=== PATIENT | male | born 1940 | race Caucasian/White ===

== ENCOUNTER 2016-06-16 05:45 | Day surgery (SDC) | payer OTHER ==
--- NOTE | ~2016-06-16 | EGD ---
EGD REPORT [facility] [address] [address] NAME: TRAVIS BLANCHARD : 36 STATUS : [facility] [place] PAT#: [id number] AGE: 75 ADM/REG DATE : 06/16/16 MR#: [id number] REPORT SERV DATE: 06/16/16 DICTATED BY: PARVIN HAGEN DATE: 06/16/16 REPORT STATUS : Draft [facility] DATE: 06/16/16 Endoscopy Center Patient Name: Travis Blanchard Date of : 1940 Attending MD: PARVIN HAGEN MD Procedure Date No Time: 06/16/2016 Procedure: Upper GI endoscopy Indications: Dysphagia, Abnormal UGI series Referring MD: EYAL AGUAYO Medicines: Monitored Anesthesia Care Complications: No immediate complications. Procedure: Pre-Anesthesia Assessment: - ASA Grade Assessment: III - A patient with severe systemic disease. After obtaining informed consent, the endoscope was passed under direct vision. Throughout the procedure, the patient's blood pressure, pulse, and oxygen saturations were monitored continuously. The GIF H190 [id number] was introduced through the mouth, and advanced to the second part of duodenum. The upper GI endoscopy was accomplished without difficulty. The patient tolerated the procedure well. Findings: LA Grade B (one or more mucosal breaks greater than 5 mm, not extending between the tops of two mucosal folds) esophagitis with no bleeding was found in the lower third of the esophagus. Biopsies were taken with a cold forceps for histology. A moderate Schatzki ring (acquired) was found in the lower third of the esophagus. A guidewire was placed and the scope was withdrawn. Dilation was performed with a Savary dilator with mild resistance at 36 Fr. Estimated blood loss was minimal. A small hiatus hernia was present. Patchy mildly erythematous mucosa without bleeding was found in the gastric antrum. Biopsies were taken with a cold forceps for histology. The cardia and gastric fundus were normal on retroflexion. Localized moderately erythematous mucosa without active bleeding and with no stigmata of bleeding was found in the duodenal bulb. Biopsies were taken with a cold forceps for histology. The cardia and gastric fundus were normal on retroflexion. Impression: - LA Grade B reflux esophagitis. Biopsied. - Moderate Schatzki ring. Dilated. - Hiatus hernia. - Erythematous mucosa in the antrum. Biopsied. EGD REPORT [address] [place]. [address] NAME: TRAVIS BLANCHARD : 36 STATUS : [facility] [place] PAT#: [id number] AGE: 75 ADM/REG DATE : 06/16/16 MR#: [id number] REPORT SERV DATE: 06/16/16 DICTATED BY: PARVIN HAGEN DATE: 06/16/16 REPORT STATUS : Draft TRANSCRIBED BY: [employer] DATE: 06/16/16 - Erythematous duodenopathy. Biopsied. Recommendation: - Patient has a contact number available for emergencies. The signs and symptoms of potential delayed complications were discussed with the patient. Return to normal activities tomorrow. Written discharge instructions were provided to the patient. - Continue present medications. - Liquids for 24 hours then soft diet until repeat egd with dilation. - Use Prilosec (omeprazole) 20 mg PO daily. - Repeat the upper endoscopy in 1 week for retreatment. Procedure Code(s): --- Professional --- 04702, Esophagogastroduodenoscopy, flexible, transoral; with insertion of guide wire followed by passage of dilator(s) through esophagus over guide wire 85166, Esophagogastroduodenoscopy, flexible, transoral; with biopsy, single or multiple Diagnosis Code(s): --- Professional --- K21.0, Gastro-esophageal reflux disease with esophagitis K22.2, Esophageal obstruction K44.9, Diaphragmatic hernia without obstruction or gangrene K31.9, Disease of stomach and duodenum, unspecified K31.89, Other diseases of stomach and duodenum R13.10, Dysphagia, unspecified R93.3, Abnormal findings on diagnostic imaging of other parts of digestive tract CPT copyright 2013 [employer]. All rights reserved. The codes documented in this report are preliminary and upon accounting software specialist review may be revised to meet current compliance requirements. PARVIN HAGEN MD 06/16/2016 8:14 AM This report has been signed electronically. Number of Addenda: 0 Note Initiated On: 06/16/2016 7:54 AM Scope Withdrawal Time 0 hours 0 minutes 0 seconds [address] [id number]
[~2016-06-16 05:45] MED LIST: CYANO1000T PO
[2016-06-18] MEDS ORDERED: PRILO PO (19:01)
== END 2016-06-16 23:59 | disposition home health service (06) ==
LOC: DMU 05:45
PROVIDERS: Internal Medicine Gastroenterology
PROC: 0D738ZZ Dilation of Lower Esophagus, Via Natural or Artificial Opening Endoscopic (ICD-10-PCS; 2016-06-16)
PROC: 0DB98ZX Excision of Duodenum, Via Natural or Artificial Opening Endoscopic, Diagnostic (ICD-10-PCS; 2016-06-16)
PROC: 0DB38ZX Excision of Lower Esophagus, Via Natural or Artificial Opening Endoscopic, Diagnostic (ICD-10-PCS; principal; 2016-06-16 07:30)
PROC: 0DB68ZX Excision of Stomach, Via Natural or Artificial Opening Endoscopic, Diagnostic (ICD-10-PCS; 2016-06-16 07:30)
DX: K29.80 Duodenitis without bleeding (principal); K20.9 Esophagitis, unspecified; K44.9 Diaphragmatic hernia without obstruction or gangrene; K22.2 Esophageal obstruction; Z87.891 Personal history of nicotine dependence; Z98.890 Other specified postprocedural states
CPT/HCPCS: 88305

== ENCOUNTER 2016-06-30 06:19 | Day surgery (SDC) | payer OTHER ==
--- NOTE | ~2016-06-30 | EGD ---
EGD REPORT [facility] [address] [address] NAME: TRAVIS BLANCHARD : 36 STATUS : [facility] [place] PAT#: [id number] AGE: 75 ADM/REG DATE : 06/30/16 MR#: [id number] REPORT SERV DATE: 06/30/16 DICTATED BY: PARVIN HAGEN DATE: 06/30/16 REPORT STATUS : Draft [facility] DATE: 06/30/16 Endoscopy Center Patient Name: Travis Blanchard Date of : 1940 Attending MD: PARVIN HAGEN MD Procedure Date No Time: 06/30/2016 Procedure: Upper GI endoscopy Indications: Dysphagia Referring MD: EYAL AGUAYO Medicines: Monitored Anesthesia Care Complications: No immediate complications. Procedure: Pre-Anesthesia Assessment: - ASA Grade Assessment: II - A patient with mild systemic disease. After obtaining informed consent, the endoscope was passed under direct vision. Throughout the procedure, the patient's blood pressure, pulse, and oxygen saturations were monitored continuously. The GIF H190 [id number] was introduced through the mouth, and advanced to the second part of duodenum. The upper GI endoscopy was accomplished without difficulty. The patient tolerated the procedure well. Findings: A moderate Schatzki ring (acquired) was found in the lower third of the esophagus. A guidewire was placed and the scope was withdrawn. Dilation was performed with a Savary dilator with mild resistance at 39 Fr and mild resistance at 42 Fr. Estimated blood loss was minimal. Post dilation mucosal tear at the level of the LER. A small hiatus hernia was present. Localized mildly erythematous mucosa without bleeding was found in the gastric antrum. Biopsies were taken with a cold forceps for histology. The cardia and gastric fundus were normal on retroflexion. Localized moderately erythematous mucosa without active bleeding and with no stigmata of bleeding was found in the duodenal bulb. Biopsies were taken with a cold forceps for histology. Impression: - Moderate Schatzki ring. Dilated. - Hiatus hernia. - Erythematous mucosa in the antrum. Biopsied. - Erythematous duodenopathy. Biopsied. Recommendation: - Patient has a contact number available for emergencies. The signs and symptoms of potential delayed complications were discussed with the patient. Return to EGD REPORT [address] [place]. [address] NAME: TRAVIS BLANCHARD : 36 STATUS : [facility]#: [id number] AGE: 75 ADM/REG DATE : 06/30/16 MR#: [id number] REPORT SERV DATE: 06/30/16 DICTATED BY: PARVIN HAGEN DATE: 06/30/16 REPORT STATUS : Draft TRANSCRIBED BY: [employer] DATE: 06/30/16 normal activities tomorrow. Written discharge instructions were provided to the patient. - liquids for 24 hours then soft diet for 24 hours then as tolerated. - Repeat the upper endoscopy in 2 weeks for retreatment. - Continue present medications. - Follow an antireflux regimen. I recommended colonoscopy for screening as he has not had one in the past. Procedure Code(s): --- Professional --- 59314, Esophagogastroduodenoscopy, flexible, transoral; with insertion of guide wire followed by passage of dilator(s) through esophagus over guide wire 29653, Esophagogastroduodenoscopy, flexible, transoral; with biopsy, single or multiple Diagnosis Code(s): --- Professional --- K22.2, Esophageal obstruction K44.9, Diaphragmatic hernia without obstruction or gangrene K31.9, Disease of stomach and duodenum, unspecified K31.89, Other diseases of stomach and duodenum R13.10, Dysphagia, unspecified CPT copyright 2013 [employer]. All rights reserved. The codes documented in this report are preliminary and upon aviation mechanic review may be revised to meet current compliance requirements. PARVIN HAGEN MD 06/30/2016 8:44 AM This report has been signed electronically. Number of Addenda: 0 Note Initiated On: 06/30/2016 8:14 AM Scope Withdrawal Time 0 hours 0 minutes 0 seconds [address] [id number]
[~2016-06-30 06:19] MED LIST changes: +PRILO PO
== END 2016-06-30 23:59 | disposition home or self-care (01) ==
LOC: DMU 06:19
PROVIDERS: Internal Medicine Gastroenterology
PROC: 0D738ZZ Dilation of Lower Esophagus, Via Natural or Artificial Opening Endoscopic (ICD-10-PCS; 2016-06-30)
PROC: 0DB68ZX Excision of Stomach, Via Natural or Artificial Opening Endoscopic, Diagnostic (ICD-10-PCS; principal; 2016-06-30 08:00)
PROC: 0DB98ZX Excision of Duodenum, Via Natural or Artificial Opening Endoscopic, Diagnostic (ICD-10-PCS; 2016-06-30 08:00)
DX: K29.80 Duodenitis without bleeding (principal); K22.2 Esophageal obstruction; K44.9 Diaphragmatic hernia without obstruction or gangrene; K31.89 Other diseases of stomach and duodenum; K21.9 Gastro-esophageal reflux disease without esophagitis; Z79.899 Other long term (current) drug therapy; Z87.891 Personal history of nicotine dependence
CPT/HCPCS: 88305

== ENCOUNTER 2016-07-14 12:09 | Day surgery (SDC) | payer OTHER, MEDICARE ==
--- NOTE | ~2016-07-14 | EGD ---
EGD REPORT [facility] [address] [address] NAME: TRAVIS BLANCHARD : [birth year] STATUS : [facility]#: [id number] AGE: 75 ADM/REG DATE : 07/14/16 MR#: [id number] REPORT SERV DATE: 07/14/16 DICTATED BY: PARVIN HAGEN DATE: 07/14/16 REPORT STATUS : Draft [facility]: [facility] DATE: 07/14/16 Endoscopy Center Patient Name: Travis Blanchard Date of : 1940 Attending MD: PARVIN HAGEN MD Procedure Date No Time: 07/14/2016 Procedure: Colonoscopy Indications: Screening for colorectal malignant neoplasm Referring MD: EYAL AGUAYO Medicines: Monitored Anesthesia Care Complications: No immediate complications. Procedure: Pre-Anesthesia Assessment: - ASA Grade Assessment: II - A patient with mild systemic disease. After I obtained informed consent, the scope was passed under direct vision. Throughout the procedure, the patient's blood pressure, pulse, and oxygen saturations were monitored continuously. The CF [id number] was introduced through the anus and advanced to the cecum, identified by appendiceal orifice and ileocecal valve. The colonoscopy was performed with moderate difficulty due to significant looping. Successful completion of the procedure was aided by applying abdominal pressure. The patient tolerated the procedure well. The quality of the bowel preparation was good. Findings: The digital rectal exam was normal. Pertinent negatives include no palpable rectal lesions. A few diverticula were found in the ascending colon. Hemorrhoids were found during retroflexion and were moderate. A sessile polyp was found in the sigmoid colon. The polyp was 5 mm in size. The polyp was removed with a cold biopsy forceps. Resection and retrieval were complete. Hemorrhoids were found during retroflexion and were moderate. Impression: - Diverticulosis in the ascending colon. - Hemorrhoids. - One 5 mm polyp in the sigmoid colon. Resected and retrieved. - Hemorrhoids. Recommendation: - Patient has a contact number available for emergencies. The signs and symptoms of potential delayed complications were discussed with the patient. Return to EGD REPORT [address] [place]. [address] NAME: TRAVIS BLANCHARD : 36 STATUS : [facility] [place] PAT#: [id number] AGE: 75 ADM/REG DATE : 07/14/16 MR#: [id number] REPORT SERV DATE: 07/14/16 DICTATED BY: PARVIN HAGEN DATE: 07/14/16 REPORT STATUS : Draft TRANSCRIBED BY: [employer] DATE: 07/14/16 normal activities tomorrow. Written discharge instructions were provided to the patient. - Regular diet. - Continue present medications. - Await pathology results. - Repeat colonoscopy is not recommended for surveillance. - Return to GI clinic PRN. Procedure Code(s): --- Professional --- 01369, Colonoscopy, flexible, proximal to splenic flexure; with biopsy, single or multiple Diagnosis Code(s): --- Professional --- K64.9, Unspecified hemorrhoids K57.30, Diverticulosis of large intestine without perforation or abscess without bleeding D12.5, Benign neoplasm of sigmoid colon Z12.11, Encounter for screening for malignant neoplasm of colon CPT copyright 2013 [employer]. All rights reserved. The codes documented in this report are preliminary and upon credit control officer review may be revised to meet current compliance requirements. PARVIN HAGEN MD 07/14/2016 2:15 PM This report has been signed electronically. Number of Addenda: 0 Note Initiated On: 07/14/2016 1:32 PM Scope Withdrawal Time 0 hours 9 minutes 35 seconds [address] [address]
--- NOTE | ~2016-07-14 | EGD ---
EGD REPORT [facility] [address] [address] NAME: TRAVIS BLANCHARD : 36 STATUS : REG [facility]#: [id number] AGE: 75 ADM/REG DATE : 07/14/16 MR#: [id number] REPORT SERV DATE: 07/14/16 DICTATED BY: PARVIN HAGEN DATE: 07/14/16 REPORT STATUS : Draft [facility]: [facility] DATE: 07/14/16 Endoscopy Center Patient Name: Travis Blanchard Date of : 1940 Attending MD: PARVIN HAGEN MD Procedure Date No Time: 07/14/2016 Procedure: Upper GI endoscopy Indications: Dysphagia Referring MD: EYAL AGUAYO Medicines: Monitored Anesthesia Care Complications: No immediate complications. Procedure: Pre-Anesthesia Assessment: - ASA Grade Assessment: II - A patient with mild systemic disease. After obtaining informed consent, the endoscope was passed under direct vision. Throughout the procedure, the patient's blood pressure, pulse, and oxygen saturations were monitored continuously. The GIF H190 [id number] was introduced through the mouth, and advanced to the second part of duodenum. The upper GI endoscopy was accomplished without difficulty. The patient tolerated the procedure well. Findings: A mild Schatzki ring (acquired) was found in the lower third of the esophagus. A guidewire was placed and the scope was withdrawn. Dilation was performed with a Savary dilator with mild resistance at 45 Fr and mild resistance at 48 Fr. Estimated blood loss was minimal. A small hiatus hernia was present. Localized mildly erythematous mucosa without bleeding was found in the gastric antrum. Biopsies were taken with a cold forceps for histology. The duodenal bulb and 2nd part of the duodenum were normal. A single 8 mm sessile polyp with was found in the duodenal bulb. Biopsies were taken with a cold forceps for histology. Impression: - Mild Schatzki ring. Dilated. - Hiatus hernia. - Erythematous mucosa in the antrum. Biopsied. - Normal duodenal bulb and 2nd part of the duodenum. - A single duodenal polyp. Biopsied. Recommendation: - Await pathology results. - Follow an antireflux regimen. - Repeat the upper endoscopy PRN for retreatment. EGD REPORT [address] [place]. [address] NAME: TRAVIS BLANCHARD : 36 [place] [facility] [place] [id number] AGE: 75 ADM/REG DATE : 07/14/16 MR#: [id number] REPORT SERV DATE: 07/14/16 DICTATED BY: PARVIN HAGEN DATE: 07/14/16 REPORT STATUS : Draft TRANSCRIBED BY: [employer] DATE: 07/14/16 Procedure Code(s): --- Professional --- 32429, Esophagogastroduodenoscopy, flexible, transoral; with insertion of guide wire followed by passage of dilator(s) through esophagus over guide wire 49373, Esophagogastroduodenoscopy, flexible, transoral; with biopsy, single or multiple Diagnosis Code(s): --- Professional --- K22.2, Esophageal obstruction K44.9, Diaphragmatic hernia without obstruction or gangrene K31.9, Disease of stomach and duodenum, unspecified K31.7, Polyp of stomach and duodenum R13.10, Dysphagia, unspecified CPT copyright 2013 [employer]. All rights reserved. The codes documented in this report are preliminary and upon arc welder apprentice review may be revised to meet current compliance requirements. PARVIN HAGEN MD 07/14/2016 1:54 PM This report has been signed electronically. Number of Addenda: 0 Note Initiated On: 07/14/2016 1:34 PM Scope Withdrawal Time 0 hours 0 minutes 0 seconds [address] [id number]
== END 2016-07-14 23:59 | disposition home or self-care (01) ==
LOC: DMU 12:09
PROVIDERS: Internal Medicine Gastroenterology
PROC: 0DB68ZX Excision of Stomach, Via Natural or Artificial Opening Endoscopic, Diagnostic (ICD-10-PCS; 2016-07-14)
PROC: 0DBN8ZX Excision of Sigmoid Colon, Via Natural or Artificial Opening Endoscopic, Diagnostic (ICD-10-PCS; principal; 2016-07-14 14:00)
PROC: 0D748ZZ Dilation of Esophagogastric Junction, Via Natural or Artificial Opening Endoscopic (ICD-10-PCS; 2016-07-14 14:00)
PROC: 0DB98ZX Excision of Duodenum, Via Natural or Artificial Opening Endoscopic, Diagnostic (ICD-10-PCS; 2016-07-14 14:00)
DX: Z12.11 Encounter for screening for malignant neoplasm of colon (principal); K57.30 Diverticulosis of large intestine without perforation or abscess without bleeding; K63.5 Polyp of colon; K29.80 Duodenitis without bleeding; K64.9 Unspecified hemorrhoids; K21.9 Gastro-esophageal reflux disease without esophagitis; K44.9 Diaphragmatic hernia without obstruction or gangrene; K22.2 Esophageal obstruction; K31.9 Disease of stomach and duodenum, unspecified; K31.7 Polyp of stomach and duodenum
CPT/HCPCS: 88305